=== PATIENT | female | born 1945 | race Caucasian/White ===

== ENCOUNTER 2019-04-02 12:11 | Outpatient (CLI) | payer MEDICARE, SELFPAY ==
--- NOTE | 2019-04-02 12:17 | US_ITS ---
WS: [id number] Abdomen ultrasound, 04/02/2019 Clinical Data: constipation and distention Comparison: None. Findings: The pancreas shows no cyst, pseudocyst or evidence of pancreatitis. The liver shows no cysts, masses or dilated intrahepatic ducts. The liver shows irregularity but no e nlargement measuring 13.27 cm. There is a large amount of ascites present. The gallbladder has stones and sludge. The wall measures 0.37 cmwith no pericholecystic fluid. The co mmon bile duct is 0.34 cm and no intraductal abnormalities are noted. The right kidney is 4.37 x 4.78 x 9.66 cm. No cysts, masses or hydronephrosis is seen. The left kidney is 4.25 x 4.48 x 7.83 cm. No cysts, masses or hydronephrosis is seen. The abdominal aorta is not dilated and the inferior vena cava has normal flow. No vascular abnormalit ies are seen. The spleen measures 6.88 x 16.37 cm and there are no intrasplenic masses are capsular abnormalities. US/US abdomen complete* [id number] Impression: 1. Irregular surface of the liver which may indicate cirrhosis. 2. Splenomegaly with ascites. 3. Cholelithiasis with sludge and stones. 4. Thickened gallbladder wall which can be seen with acute and/or chronic caden cystitis.
== END 2019-04-02 12:12 | disposition home or self-care (01) ==
LOC: RAD 12:15
PROVIDERS: Family Provider Nurse Practitioner Family; PCP Nurse Practitioner Family; Visit Provider Nurse Practitioner
DX: K80.20 Calculus of gallbladder without cholecystitis without obstruction (principal); R16.1 Splenomegaly, not elsewhere classified; K59.00 Constipation, unspecified; R18.8 Other ascites
CPT/HCPCS: 74018; 76700

== ENCOUNTER 2019-04-02 14:38 | Inpatient (IN) | payer MEDICARE, SELFPAY ==
[2019-04-02 14:44] VITALS: BP 141/76; PULSE 111; RESP 17; TEMP 36.7; O2SAT 99; BMI 25.2
--- NOTE | 2019-04-02 16:22 | ED_ITS ---
Documented by User: CHIN Reed 04/03/19 07:11 HPI - Abdominal Pain General: Chief Complaint: Abdominal Pain Stated Complaint: upper abd pain Time Seen by Provider: 04/02/19 16:13 Source: patient Mode of arrival: ambulatory Limitations: no limitations History of Present Illness: HPI narrative: Patient was encouraged to come over to be evaluated in the ER for concerns of gallstones and extra fluid on her abdomen. Patient reports increased discomfort for the last 2 weeks in her abdomen. Patient was seen at the [facility] and [place]. Patient appears chronically ill with some mild respiratory difficulty. Patient appears in mild pain. Associated Symptoms: Reports nausea Review of Systems General: Reports: 10 or more systems reviewed and unremarkable except in HPI and below Resp: Reports: shortness of breath GI: Reports: abdominal pain and nausea PFSH ED PFSH: Statuses (acute, chronic, etc) shown below reflect problem list status as previously entered and may not be historically accurate Medical History (Updated 04/03/19 @ 02:41 by Shoshana Ferguson MD) Acquired hypothyroidism (Chronic) Arthritis (Chronic) Chronic kidney disease, stage III (moderate) (Acute) DDD (degenerative disc disease), lumbosacral (Chronic) Essential hypertension (Chronic) Herpes genitalia (Acute) History of breast cancer (Acute) 1997, treated with right mastectomy, never had chemotherapy nor hormonal therapy Mixed hyperlipidemia (Chronic) Type 2 diabetes mellitus without complication, without long-term current use of insulin (Chronic) Vitamin D deficiency (Chronic) Surgical History (Updated 04/03/19 @ 02:38 by Shoshana Ferguson MD) History of right mastectomy (Acute) 1997 Family History (Updated 04/03/19 @ 02:34 by Shoshana Ferguson MD) Sister Cancer of breast cancer, several cousins also have breast cancer Father CAD (coronary artery disease) Brother CAD (coronary artery disease) Other Arthritis Social History (Updated 04/03/19 @ 02:35 by Shoshana Ferguson MD) Smoking and tobacco status: never smoked Alcohol intake: never Substance/Drug Use: never Number of children: 0 Physical Exam Const: COMMON NORMALS: no apparent distress and oriented x3 GENERAL APPEARANCE: cooperative HENMT: COMMON NORMALS: normocephalic, external ears normal, EAC's normal, TM's normal bilaterally and external nose normal HEAD & SCALP: normal to inspection and normocephalic FACE & SINUS: normal facial exam NOSE: external nose normal GENERAL EAR: hearing not grossly impaired EXTERNAL EAR: Yes external ears normal EXTERNAL AUDITORY CANAL: EAC's normal TYMPANIC MEMBRANE: TM's normal bilaterally MOUTH: oral and palatal mucosa normal THROAT: posterior oropharynx normal Eye: COMMON NORMALS: PERRL and EOMs intact bilaterally PUPIL: Yes PERRL Neck/C-Spine: COMMON NORMALS: full ROM and no lymphadenopathy Lymph: LYMPHATIC: no lymphedema noted Chest: COMMONS NORMALS: inspection of chest normal and palpation of chest normal Resp: COMMON NORMALS: clear to auscultation bilaterally EFFORT & INSPECT ION: Yes abnormal respiratory pattern (tachypnic) AUSCULTATION: clear to auscultation bilaterally and diminished lung sounds Cardio: COMMON NORMALS: regular rate and regular rhythm RATE: regular rate RHYTHM: regular rhythm GI: INSPECTION: Yes abdominal distension (mod) AUSCULTATION: Yes normoactive bowel sounds PALPATION: Yes tender Details: RUQ (mild) : COMMON NORMALS: Yes no CVA tenderness BLADDER/KIDNEY EXAM: Yes no CVA tenderness Back/Pelvis: COMMON NORMALS: no CVA tenderness and thoracic and lumbar spine normal to inspection Extremity: COMMON NORMALS: normal to inspection GENERAL: No edema Neuro: COMMON NORMALS: oriented x3, moves all extremities and no focal motor deficits Psych: COMMON NORMALS: mental status grossly normal and cooperative Skin: COMMON NORMALS: no rashes or lesions noted GENERAL SKIN EXAM: no rashes or lesions noted Course ED course: 1624, discussed with Dr. Lee, agreed to receive patient on my leave. Recommended US of gallbladder for further evaluation. ww 1650, talked with Dr. Lee regarding abnormal US, will assume care, awaiting labs and further evaluation, probable admit to surgical services for gallbladder removal. wjw Vital Signs: Vital signs: Vital Signs Temperature 98.4 F 04/03/19 04:00 Pulse Rate 84 04/03/19 04:00 Respiratory Rate 22 H 04/03/19 04:00 Blood Pressure 129/71 04/03/19 04:00 Pulse Oximetry 97 04/03/19 04:00 MDM - Abdominal Pain Lab Data: Labs: Lab Results 04/02/19 04/02/19 04/02/19 Range/Units 17:00 17:00 17:01 WBC 6.7 (4.0-10.0) 10^3/ uL RBC 3.25 L (4.1-5.3) 10^6/u L Hgb 8.2 L (11.5-15.3) g/dL Hct 28.1 L (37.0-47.0) % MCV 86.5 (81-99) fL MCH 25.2 L (28.0-34.0) pg MCHC 29.2 L (30.0-36.0) g/dL RDW 16.8 H (12.1-15.1) % Plt Count 151 (130-400) 10^3/c mm MPV 11.7 H (7.4-10.4) fL Neut % (Auto) 73.1 % Lymph % (Auto) 15.7 % [place] % (Auto) 7.7 % Eos % (Auto) 2.5 % Baso % (Auto) 0.7 % Neut # (Auto) 4.9 (1.8-7.7) 10^3/u L Lymph # (Auto) 1.1 (0.8-4.8) 10^3/u L [place] # (Auto) 0.5 (0.2-0.9) 10^3/u L Eos # (Auto) 0.2 (0.0-0.8) 10^3/u L Baso # (Auto) 0.1 (0.0-0.1) 10^3/u L Nucleated RBC % (a uto) 0 % Nucleated RBCs # 0.0 /100WBC Specimen Type Sample Site ABG pH (7.35-7.45) ABG pCO2 (35-45) mmHg ABG pO2 (80.0-100.0) mmH g ABG HCO3 (22-26) mmol/L ABG Base Excess (-2.0-2.0) mmol/ L Ronald Test Hematocrit (37-47) % Pot Fluxer ID Sodium 135 L (136-145) mmol/L Potassium 5.3 H (3.5-5.1) mmol/L Chloride 106 (98-107) mmol/L Carbon Dioxide 16 L (22-29) mmol/L Anion Gap 18.3 (5-19) BUN 44 H (8-23) mg/dL Creatinine 2.1 H (0.5-0.9) mg/dL Glucose 279 H (74-106) mg/dL Calcium 9.2 (8.8-10.2) mg/Dl Total Bilirubin 0.4 (0.15-1.2) mg/dL AST 47 H (0-32) U/L ALT 28 (0-33) U/L Alkaline Phosphata se 369 H (35-105) IU/L Troponin T Baselin e 37 H (0-10) ng/mL Troponin T 120 Min [place] (0-10) ng/mL Delta Troponin T (0-10) ABS# Total Protein 7.0 (6.6-8.7) g/dL Albumin 3.2 L (3.5-5.2) g/dL Globulin 3.8 (1.3-4.6) g/dL Lipase 77 H (13-60) U/L Urine Color (Yellow) Urine Appearance (CLEAR) Urine pH (5-7) Ur Specific Gravit y (1.005-1.030) Urine Protein (Negative) Urine Glucose (UA) (Normal) Urine Ketones (Negative) Urine Occult Blood (Negative) Urine Nitrate (Negative) Urine Bilirubin (NEGATIVE) Urine Urobilinogen (Negative) mg/dL Ur Leukocyte Nelda ase (Negative) Urine RBC (0-2) /hpf Urine WBC (0-5) /hpf Ur Squamous Epith Cells (0-5) Urine Bacteria (NONE) Hyaline Casts 04/02/19 04/02/19 04/02/19 Range/Units 17:34 19:19 20:20 WBC (4.0-10.0) 10^3/ uL RBC (4.1-5.3) 10^6/u L Hgb (11.5-15.3) g/dL Hct (37.0-47.0) % MCV (81-99) fL MCH (28.0-34.0) pg MCHC (30.0-36.0) g/dL RDW (12.1-15.1) % Plt Count (130-400) 10^3/c mm MPV (7.4-10.4) fL Neut % (Auto) % Lymph % (Auto) % [place] % (Auto) % Eos % (Auto) % Baso % (Auto) % Neut # (Auto) (1.8-7.7) 10^3/u L Lymph # (Auto) (0.8-4.8) 10^3/u L [place] # (Auto) (0.2-0.9) 10^3/u L Eos # (Auto) (0.0-0.8) 10^3/u L Baso # (Auto) (0.0-0.1) 10^3/u L Nucleated RBC % (a uto) % Nucleated RBCs # /100WBC Specimen Type Arterial Sample Site Radial, right ABG pH 7.40 (7.35-7.45) ABG pCO2 23.2 L (35-45) mmHg ABG pO2 82.9 (80.0-100.0) mmH g ABG HCO3 14.5 L (22-26) mmol/L ABG Base Excess -9.0 L (-2.0-2.0) mmol/ L Ronald Test Pos Hematocrit 25.3 L (37-47) % Pot Fluxer ID jmn Sodium (136-145) mmol/L Potassium (3.5-5.1) mmol/L Chloride (98-107) mmol/L Carbon Dioxide (22-29) mmol/L Anion Gap (5-19) BUN (8-23) mg/dL Creatinine (0.5-0.9) mg/dL Glucose (74-106) mg/dL Calcium (8.8-10.2) mg/Dl Total Bilirubin (0.15-1.2) mg/dL AST (0-32) U/L ALT (0-33) U/L Alkaline Phosphata se (35-105) IU/L Troponin T Baselin e (0-10) ng/mL Troponin T 120 Min [place] 37.65 H (0-10) ng/mL Delta Troponin T 0.65 (0-10) ABS# Total Protein (6.6-8.7) g/dL Albumin (3.5-5.2) g/dL Globulin (1.3-4.6) g/dL Lipase (13-60) U/L Urine Color Yellow (Yellow) Urine Appearance Cloudy (CLEAR) Urine pH 5 (5-7) Ur Specific Gravit y 1.015 (1.005-1.030) Urine Protein 1+ H (Negative) Urine Glucose (UA) Norm (Normal) Urine Ketones 1+ H (Negative) Urine Occult Blood Neg (Negative) Urine Nitrate Negative (Negative) Urine Bilirubin 1+ H (NEGATIVE) Urine Urobilinogen 1 H (Negative) mg/dL Ur Leukocyte [place] Trace H (Negative) Urine RBC 0-4 H (0-2) /hpf Urine WBC 15-25 H (0-5) /hpf Ur Squamous Epith Cells 25-40 H (0-5) Urine Bacteria 2+ H (NONE) Hyaline Casts 0-4 H Imaging Data ^: US: Radiologist's impression: Patient: Franci Sy MR#: [id number] : 1945 Acct:[id number] Age/Sex: 74 / F ADM Date: 04/02/19 Loc: RAD Attending Dr: Paty NEELY Ordering Physician: Paty Lao Date of Service: 04/02/19 Procedure(s): US abdomen complete* [id number] Accession Number(s): [id number] Report Number: [id number] WS: [id number] Abdomen ultrasound, 04/02/2019 Clinical Data: constipation and distention Comparison: None. Findings: The pancreas shows no cyst, pseudocyst or evidence of pancreatitis. The liver shows no cysts, masses or dilated intrahepatic ducts. The liver shows irregularity but no enlargement measuring 13.27 cm. There is a large amount of ascites present. The gallbladder has stones and sludge. The wall measures 0.37 cmwith no pericholecystic fluid. The common bile duct is 0.34 cm and no intraductal abnormalities are noted. The right kidney is 4.37 x 4.78 x 9.66 cm. No cysts, masses or hydronephrosis is seen. The left kidney is 4.25 x 4.48 x 7.83 cm. No cysts, masses or hydronephrosis is seen. The abdominal aorta is not dilated and the inferior vena cava has normal flow. No vascular abnormalities are seen. The spleen measures 6.88 x 16.37 cm and there are no intrasplenic masses are capsular abnormalities. US/US abdomen complete* [id number] Impression: 1. Irregular surface of the liver which may indicate cirrhosis. 2. Splenomegaly with ascites. 3. Cholelithiasis with sludge and stones. 4. Thickened gallbladder wall which can be seen with acute and/or chronic cholecystitis. Dictated By: Megna Ratliff MD Signed By: Megan Ratliff MD Signed Date/Time:04/02/19 1339 DD/ 1336 Discharge Plan Discharge Patient Disposition: Placed in Observation Admit Provider: Shoshana Ferguson Clinical Impression: Ascites Qualifiers: Ascites type: other type Qualified Code(s): R18.8 - Other ascites Condition: Stable Discharge Date/Time: 04/02/19 22:20 Sign Out Sign Out Data: Patient Sign Out occurred on 04/02/19 at 17:03. Patient's care was discussed, and care was transferred from Lane Jaime to Luna Lee. Sign Out Comment: Patient awaiting labs and further evaluation, probable admission for surgical services for cholecystitis. wjw Last updated by Lane Jaime FNP at 04/02/19 17:03 Coding Level of Care Code ED Outer Diameter Grinder for Chg Fwd Exam Problem Focused Documented by User: Luna Lee 04/02/19 22:01 HPI - Abdominal Pain General: Chief Complaint: Abdominal Pain Stated Complaint: upper abd pain Time Seen by Provider: 04/02/19 16:13 PFSH ED PFSH: Statuses (acute, chronic, etc) shown below reflect problem list status as previously entered and may not be historically accurate Medical History (Updated 04/03/19 @ 02:41 by Shoshana Ferguson MD) Acquired hypothyroidism (Chronic) Arthritis (Chronic) Chronic kidney disease, stage III (moderate) (Acute) DDD (degenerative disc disease), lumbosacral (Chronic) Essential hypertension (Chronic) Herpes genitalia (Acute) History of breast cancer (Acute) 1997, treated with right mastectomy, never had chemotherapy nor hormonal therapy Mixed hyperlipidemia (Chronic) Type 2 diabetes mellitus without complication, without long-term current use of insulin (Chronic) Vitamin D deficiency (Chronic) Surgical History (Updated 04/03/19 @ 02:38 by Shoshana Ferguson MD) History of right mastectomy (Acute) 1997 Family History (Updated 04/03/19 @ 02:34 by Shoshana Ferguson MD) Sister Cancer of breast cancer, several cousins also have breast cancer Father CAD (coronary artery disease) Brother CAD (coronary artery disease) Other Arthritis Social History (Updated 04/03/19 @ 02:35 by Shoshana Ferguson MD) Smoking and tobacco status: never smoked Alcohol intake: never Substance/Drug Use: never Number of children: 0 Course Vital Signs: Vital signs: Vital Signs Temperature 98.4 F 04/03/19 04:00 Pulse Rate 84 04/03/19 04:00 Respiratory Rate 22 H 04/03/19 04:00 Blood Pressure 129/71 04/03/19 04:00 Pulse Oximetry 97 04/03/19 04:00 MDM - Abdominal Pain MDM Narrative: Medical decision making narrative: The patient was seen and evaluated by Dr. Webb. She agrees admit the patient for work-up of her ascites. The patient gets conversational dyspnea L as she is sitting upright. I see no sign of spontaneous bacterial peritonitis. I do believe we need to perform a diagnostic and therapeutic paracentesis but would be best performed under optimal sterile conditions under radiology guidance with ultrasound. Dr. Ferguson is in agreement and will admit the patient for further care. Lab Data: Labs: Lab Results 04/02/19 04/02/19 04/02/19 Range/Units 17:00 17:00 17:01 WBC 6.7 (4.0-10.0) 10^3/ uL RBC 3.25 L (4.1-5.3) 10^6/u L Hgb 8.2 L (11.5-15.3) g/dL Hct 28.1 L (37.0-47.0) % MCV 86.5 (81-99) fL MCH 25.2 L (28.0-34.0) pg MCHC 29.2 L (30.0-36.0) g/dL RDW 16.8 H (12.1-15.1) % Plt Count 151 (130-400) 10^3/c mm MPV 11.7 H (7.4-10.4) fL Neut % (Auto) 73.1 % Lymph % (Auto) 15.7 % [place] % (Auto) 7.7 % Eos % (Auto) 2.5 % Baso % (Auto) 0.7 % Neut # (Auto) 4.9 (1.8-7.7) 10^3/u L Lymph # (Auto) 1.1 (0.8-4.8) 10^3/u L [place] # (Auto) 0.5 (0.2-0.9) 10^3/u L Eos # (Auto) 0.2 (0.0-0.8) 10^3/u L Baso # (Auto) 0.1 (0.0-0.1) 10^3/u L Nucleated RBC % (a uto) 0 % Nucleated RBCs # 0.0 /100WBC Specimen Type Sample Site ABG pH (7.35-7.45) ABG pCO2 (35-45) mmHg ABG pO2 (80.0-100.0) mmH g ABG HCO3 (22-26) mmol/L ABG Base Excess (-2.0-2.0) mmol/ L Ronald Test Hematocrit (37-47) % Pot Fluxer ID Sodium 135 L (136-145) mmol/L Potassium 5.3 H (3.5-5.1) mmol/L Chloride 106 (98-107) mmol/L Carbon Dioxide 16 L (22-29) mmol/L Anion Gap 18.3 (5-19) BUN 44 H (8-23) mg/dL Creatinine 2.1 H (0.5-0.9) mg/dL Glucose 279 H (74-106) mg/dL Calcium 9.2 (8.8-10.2) mg/Dl Total Bilirubin 0.4 (0.15-1.2) mg/dL AST 47 H (0-32) U/L ALT 28 (0-33) U/L Alkaline Phosphata se 369 H (35-105) IU/L Troponin T Baselin e 37 H (0-10) ng/mL Troponin T 120 Min [place] (0-10) ng/mL Delta Troponin T (0-10) ABS# Total Protein 7.0 (6.6-8.7) g/dL Albumin 3.2 L (3.5-5.2) g/dL Globulin 3.8 (1.3-4.6) g/dL Lipase 77 H (13-60) U/L Urine Color (Yellow) Urine Appearance (CLEAR) Urine pH (5-7) Ur Specific Gravit y (1.005-1.030) Urine Protein (Negative) Urine Glucose (UA) (Normal) Urine Ketones (Negative) Urine Occult Blood (Negative) Urine Nitrate (Negative) Urine Bilirubin (NEGATIVE) Urine Urobilinogen (Negative) mg/dL Ur Leukocyte Nelda ase (Negative) Urine RBC (0-2) /hpf Urine WBC (0-5) /hpf Ur Squamous Epith Cells (0-5) Urine Bacteria (NONE) Hyaline Casts 04/02/19 04/02/19 04/02/19 Range/Units 17:34 19:19 20:20 WBC (4.0-10.0) 10^3/ uL RBC (4.1-5.3) 10^6/u L Hgb (11.5-15.3) g/dL Hct (37.0-47.0) % MCV (81-99) fL MCH (28.0-34.0) pg MCHC (30.0-36.0) g/dL RDW (12.1-15.1) % Plt Count (130-400) 10^3/c mm MPV (7.4-10.4) fL Neut % (Auto) % Lymph % (Auto) % [place] % (Auto) % Eos % (Auto) % Baso % (Auto) % Neut # (Auto) (1.8-7.7) 10^3/u L Lymph # (Auto) (0.8-4.8) 10^3/u L [place] # (Auto) (0.2-0.9) 10^3/u L Eos # (Auto) (0.0-0.8) 10^3/u L Baso # (Auto) (0.0-0.1) 10^3/u L Nucleated RBC % (a uto) % Nucleated RBCs # /100WBC Specimen Type Arterial Sample Site Radial, right ABG pH 7.40 (7.35-7.45) ABG pCO2 23.2 L (35-45) mmHg ABG pO2 82.9 (80.0-100.0) mmH g ABG HCO3 14.5 L (22-26) mmol/L ABG Base Excess -9.0 L (-2.0-2.0) mmol/ L Ronald Test Pos Hematocrit 25.3 L (37-47) % Pot Fluxer ID jmn Sodium (136-145) mmol/L Potassium (3.5-5.1) mmol/L Chloride (98-107) mmol/L Carbon Dioxide (22-29) mmol/L Anion Gap (5-19) BUN (8-23) mg/dL Creatinine (0.5-0.9) mg/dL Glucose (74-106) mg/dL Calcium (8.8-10.2) mg/Dl Total Bilirubin (0.15-1.2) mg/dL AST (0-32) U/L ALT (0-33) U/L Alkaline Phosphata se (35-105) IU/L Troponin T Baselin e (0-10) ng/mL Troponin T 120 Min [place] 37.65 H (0-10) ng/mL Delta Troponin T 0.65 (0-10) ABS# Total Protein (6.6-8.7) g/dL Albumin (3.5-5.2) g/dL Globulin (1.3-4.6) g/dL Lipase (13-60) U/L Urine Color Yellow (Yellow) Urine Appearance Cloudy (CLEAR) Urine pH 5 (5-7) Ur Specific Gravit y 1.015 (1.005-1.030) Urine Protein 1+ H (Negative) Urine Glucose (UA) Norm (Normal) Urine Ketones 1+ H (Negative) Urine Occult Blood Neg (Negative) Urine Nitrate Negative (Negative) Urine Bilirubin 1+ H (NEGATIVE) Urine Urobilinogen 1 H (Negative) mg/dL Ur Leukocyte [place] Trace H (Negative) Urine RBC 0-4 H (0-2) /hpf Urine WBC 15-25 H (0-5) /hpf Ur Squamous Epith Cells 25-40 H (0-5) Urine Bacteria 2+ H (NONE) Hyaline Casts 0-4 H EKG Data ^: EKG 1: Attestation: I personally reviewed and interpreted this EKG as follows: (EKG performed and read at 1731 -normal sinus rhythm at 97 beats a minute, no acute ST-T wave changes, normal QTC.) Discharge Plan Discharge Patient Disposition: Placed in Observation Admit Provider: Shoshana Ferguson Clinical Impression: Ascites Qualifiers: Ascites type: other type Qualified Code(s): R18.8 - Other ascites Condition: Stable Discharge Date/Time: 04/02/19 22:20 Sign Out Sign Out Data: Patient Sign Out occurred on 04/02/19 at 17:03. Patient's care was discussed, and care was transferred from Lane Jaime to Luna Lee. Sign Out Comment: Patient awaiting labs and further evaluation, probable admission for surgical services for cholecystitis. wjw Last updated by Laen Jaime FNP at 04/02/19 17:03 Coding Level of Care Code ED Outer Diameter Grinder for Chg Fwd Exam Problem Focused
--- NOTE | 2019-04-02 16:27 | ECG_ITS ---
Measurements Intervals [place] Rate: 97 P: 5 OK: 160 QRS: 43 QRSD: 93 T: 36 QT: 345 QTc: 439 SINUS RHYTHM LOW QRS VOLTAGE IN EXTREMITY LEADS [QRS DEFLECTION < 0.5 mV IN LIMB LEADS] No previous ECG available for comparison Electronically Signed On 04-03-2019 16:43:17 TRAUMA REGISTRAR by Ajay Lindsay M.D. [id number] f
--- NOTE | 2019-04-02 16:28 | XR_ITS ---
WS: [id number] CHEST XRAY TECHNIQUE: Portable chest. CLINICAL INFORMATION: short of breath COMPARISON: None. FINDINGS: Heart: Cardiomegaly. Lungs: Shallow inspiration. Chronic emphysematous changes. Subsegmental atelectasis in the lung bases . Surgical clips right axilla. No focal pneumonia. Bones: Normal visualized bony structures. XR/XR chest 1V portable [id number] IMPRESSION: 1. Shallow inspiration with subsegmental atelectasis in the lung bases. 2. No focal pneumonia.
--- NOTE | 2019-04-02 16:58 | CTR_ITS ---
PROCEDURE INFORMATION: Exam: CT Abdomen And Pelvis Without Contrast Exam date and time: 04/02/2019 5:55 PM Age: 74 years old Clinical indication: Bloating; Abdominal pain TECHNIQUE: Imaging protocol: Computed tomography of the abdomen and pelvis without contrast. Total DLP: 794.41 mGy-cm Radiation optimization: All CT scans at this facility use at least one of these dose optimization techniques: automated exposure control; mA and/or kV adjustment per patient size (includes targeted exams where dose is matched to clinical indication); or iterative reconstruction. COMPARISON: US abdomen complete* [id number] 04/02/2019 12:58 PM FINDINGS: Lungs: Nonspecific bibasilar consolidation is present, consistent with atelectasis, edema, or pneumonia. Mediastinum: A moderate hiatal hernia is present. Liver: The liver has a nodular contour and there is relative hypertrophy of the caudate lobe, consistent with cirrhosis. Gallbladder and bile ducts: Multiple calcified gallstones are present. There is no common bile duct dilation. Pancreas: Normal. No ductal dilation. Spleen: There is moderate nonspecific splenomegaly. Adrenals: Normal. No mass. Kidneys and ureters: Normal. No hydronephrosis. Stomach and bowel: Unremarkable. No obstruction. No mucosal thickening. Appendix: No evidence of appendicitis. Intraperitoneal space: There is a large amount of ascites. Vasculature: Unremarkable.No abdominal aortic aneurysm. Lymph nodes: Unremarkable.No enlarged lymph nodes. Bladder: Unremarkable as visualized. Reproductive: Unremarkable as visualized. Bones/joints: Osteopenia and diffuse degenerative changes are noted throughout the spine. Soft tissues: Unremarkable. CT/CT abdomen pelvis wo con [id number] IMPRESSION: 1. Nonspecific bibasilar consolidation is present, consistent with atelectasis, edema, or pneumonia. 2. There is a large amount of ascites. 3. Liver cirrhosis with splenomegaly. 4. No bowel thickening or inflammatory changes. Incidental cholelithiasis. Radiation Dose CTDIVOL = (mGy): DLP = 794.41 (mGy-cm)
[2019-04-02 17:10] LABS: Basophils # 0.1 10^3/uL (0.0-0.1); Basophils % 0.7 %; Eosinophils # 0.2 10^3/uL (0.0-0.8); Eosinophils % 2.5 %; Hematocrit 28.1 % (37.0-47.0); Hemoglobin 8.2 g/dL (11.5-15.3); Lymphocytes # 1.1 10^3/uL (0.8-4.8); Lymphocytes % 15.7 %; Mean Corpuscular HGB Conc 29.2 g/dL (30.0-36.0); Mean Corpuscular Hemoglobin 25.2 pg (28.0-34.0); Mean Corpuscular Volume 86.5 fL (81-99); Mean Platelet Volume 11.7 fL (7.4-10.4); Monocytes # 0.5 10^3/uL (0.2-0.9); Monocytes % 7.7 %; Neutrophils # 4.9 10^3/uL (1.8-7.7); Neutrophils % 73.1 %; Nucleated Red Blood Cells % 0 %; Platelet Count 151 10^3/cmm (130-400); Red Blood Count 3.25 10^6/uL (4.1-5.3); Red Cell Distribution Width 16.8 % (12.1-15.1); White Blood Count 6.7 10^3/uL (4.0-10.0)
[2019-04-02 17:30] LABS: Troponin(5th) Baseline 37 ng/mL (0-10)
[2019-04-02 17:42] LABS: Alanine Aminotransferase 28 U/L (0-33); Albumin Level 3.2 g/dL (3.5-5.2); Alkaline Phosphatase 369 IU/L (35-105); Anion Gap 18.3 (5-19); Aspartate Amino Transferase 47 U/L (0-32); Blood Urea Nitrogen 44 mg/dL (8-23); Calcium 9.2 mg/Dl (8.8-10.2); Carbon Dioxide 16 mmol/L (22-29); Chloride 106 mmol/L (98-107); Globulin 3.8 g/dL (1.3-4.6); Glucose 279 mg/dL (74-106); Lipase 77 U/L (13-60); Potassium 5.3 mmol/L (3.5-5.1); Sodium 135 mmol/L (136-145); Total Bilirubin 0.4 mg/dL (0.15-1.2)
[2019-04-02 17:46] LABS: ABG PCO2 23.2 mmHg (35-45); Arterial Blood Gas Hematocrit 25.3 % (37-47); Blood Gas Allen Test Pos; Blood Gas Sample Site Radial, right; Blood Gas Sample Type Arterial; HCO3 ABG 14.5 mmol/L (22-26); PO2 ABG 82.9 mmHg (80.0-100.0)
--- NOTE | 2019-04-02 18:27 | ECG_ITS ---
Measurements Intervals [place] Rate: 92 P: 5 NM: 166 QRS: 34 QRSD: 104 T: 48 QT: 352 QTc: 435 SINUS RHYTHM LOW QRS VOLTAGE IN EXTREMITY LEADS [QRS DEFLECTION < 0.5 mV IN LIMB LEADS] No previous ECG available for comparison Electronically Signed On 04-03-2019 16:50:03 SUPERVISOR DRY CELL ASSEMBLY by Ajay Lindsay M.D. [id number]
[2019-04-02 19:53] LABS: Troponin 5 2HR 37.65 ng/mL (0-10); Troponin 5 2HR Delta 0.65 ABS# (0-10)
[2019-04-02 20:27] VITALS: RESP 18; O2SAT 97
[2019-04-02] MEDS: morphine 4 mg/mL SDV 1 mL 2 MG IVP ×2 (20:27→21:45)
[2019-04-02 21:09] VITALS: BP 157/76; PULSE 83; RESP 22; TEMP 36.7; O2SAT 98
[2019-04-02 21:09] LABS: Urine Color Yellow (Yellow)
[2019-04-02 21:10] LABS: Bilirubin Urine 1+ (NEGATIVE); Blood Urine Neg (Negative); Glucose Urine UA Norm (Normal); Ketones Urine 1+ (Negative); Leukocyte Esterase Urine Trace (Negative); Nitrate Urine Negative (Negative); Protein Urine 1+ (Negative); Specific Gravity, Urine 1.015 (1.005-1.030); Urine Appearance Cloudy (CLEAR); Urobilinogen Urine 1 mg/dL (Negative); pH Urine 5 (5-7)
[2019-04-02 21:11] LABS: RBC Urine 0-4 /hpf (0-2)
[2019-04-02 21:12] LABS: Add Urine Culture? No; Bacteria Urine 2+; Hyaline Casts Urine 0-4; Squamous Epithelial Cell Urine 25-40 (0-5); WBC Urine 15-25 /hpf (0-5)
[2019-04-02 21:45] VITALS: RESP 18; O2SAT 96
[2019-04-02] MEDS: ondansetron 2 mg/ML SDV 2 mL 4 MG IVP (21:45)
[2019-04-02 22:16] VITALS: BP 140/53; PULSE 76; RESP 18; O2SAT 93
--- NOTE | 2019-04-02 22:27 | ECG_ITS ---
Measurements Intervals [place] Rate: 86 P: -6 VA: 151 QRS: 39 QRSD: 97 T: 54 QT: 370 QTc: 443 SINUS RHYTHM LOW QRS VOLTAGE IN EXTREMITY LEADS [QRS DEFLECTION < 0.5 mV IN LIMB LEADS] No previous ECG available for comparison Electronically Signed On 04-03-2019 16:51:09 COURTESY VAN DRIVER by Ajay Lindsay M.D. [id number]
[2019-04-03] VITALS (7 sets, daily range): BP systolic 129–157; BP diastolic 70–77; PULSE 83–88; RESP 18–22; TEMP 36.6–36.9; O2SAT 97–98; BMI 25.2
--- NOTE | 2019-04-03 00:59 | P.HP_ITS ---
Providers/Chief Complaint Admitting Physician: Shoshana Ferguson MD Primary Care Provider: Jesus Sullivan Chief Complaint: upper abd pain History of Present Illness Franci Sy is a 74 year old female who presented to the emergency room for further evaluation of new finding of ascites. She had been seen at the clinic in [place] with a complaint of constipation. She was subsequently sent for an abdominal ultrasound that showed an irregular appearance to the liver suggesting cirrhosis, splenomegaly and a significant amount of ascites. Also noted was some cholelithiasis with sludge and stones. Gallbladder wall was thickened. She was encouraged to come to the ER. In the emergency room, she had some laboratory studies showing elevation in alkaline phosphatase, AST, normal white count and either acute kidney injury or progressive chronic kidney disease. CT of the abdomen and pelvis was done and confirmed findings suggestive of liver cirrhosis with splenomegaly. Incidental cholelithiasis was mentioned as well as nonspecific bibasilar consolidation consistent with either atelectasis, edema or pneumonia. Patient herself has no personal history of liver disease. She d enies alcohol or drug use. She denies use of any herbal type medications. No family history of liver or kidney disease. She has her own medical diagnoses as noted below which include breast cancer, diabetes, hypothyroidism. She reports that she has had gradually increasing abdominal girth over the last month. She can no longer wear her pants. She has had swelling in her legs. She denies any yellow skin or dark urine. No changes in urine output. No hematuria. No changes in bowel color or character beyond the constipation recently. She does not have any difficulty with urination but has intermittent incontinence. Last bowel movement was day of admission. She denies abdominal pain, difficulty swallowing, significant heartburn or indigestion. She has gotten progressively short of breath over the last month or so and has had a nonproductive cough. She reports increased frequency of charley horses and has been taking some [id number] potassium supplementation. Denies any difficulty walking or tremors. No recent new medications. Denies history of chronic acetaminophen or NSAID use. ED doctor noted that she was having some difficulty breathing upon arrival, sitting in a tripod position but that if she laid back she did better. With abnormalities identified she is being admitted for initiation of work-up for what looks to be a new diagnosis of liver cirrhosis. She is only had 1 surgery back in 1997 a right mastectomy. Denies ever having had a blood transfusion. Denies any history of IV drug use. Has not been tested for hepatitis that she is aware of. Review of Systems Const: Reports: change in weight (Weight gain) and fatigue; Denies: fever, chills or night sweats Eyes: Denies: change in vision or yellow eyes ENMT: Reports: dry mouth; Denies: throat pain or painful swallowing Card: Reports: edema and shortness of breath on exertion; Denies: chest pain, palpitations or irregular heart rhythm Resp: Reports: shortness of breath and non-productive cough GI: Reports: constipation and bloating; Denies: abdominal pain, nausea, vomiting, vomiting blood, coffee grounds in v omit, diarrhea, blood in stool, black tarry stool, mucus in stool, white/light colored stool or fatty stool : Reports: urinary incontinence (Occasional); Denies: flank pain, difficulty urinating or blood in urine Musc: Reports: extremity swelling (Both legs) and muscle weakness (General); Denies: redness Skin/Breast: Reports: other (Has chronic skin changes around umbilicus and un john left breast); Denies: itching or new lesion Neuro: Denies: headache, lack of coordination, difficulty walking, frequent falls, vertigo, confusion, difficulty communicating thoughts, seizure-like activity or involuntary movements Psych: Reports: anxiety and depression; Denies: irritability or memory loss Luis A/Lymph: Denies: easy bruising, easy bleeding or petechiae Medications/Allergies Home Medications Medication Instructions Recorded Confirmed Last Taken Type glipizide 10 mg PO DAILY 04/02/19 04/02/19 04/02/19 History levothyroxine 25 mcg PO DAILY 04/02/19 04/02/19 04/02/19 History lisinopril 10 mg PO DAILY 04/02/19 04/02/19 04/02/19 History simvastatin 10 mg PO DAILY 04/02/19 04/02/19 04/02/19 History Allergies Allergy/AdvReac Type Severity Reaction Status Date / Time No Known Allergies Allergy Verified 04/02/19 11:14 PFSH Acute PFSH: Statuses (acute, chronic, etc) shown below reflect problem list status as previously entered and may not be historically accurate Medical History (Updated 04/03/19 @ 02:41 by Shoshana Ferguson MD) Acquired hypothyroidism (Chronic) Arthritis (Chronic) Chronic kidney disease, stage III (moderate) (Acute) DDD (degenerative disc disease), lumbosacral (Chronic) Essential hypertension (Chronic) Herpes genitalia (Acute) History of breast cancer (Acute) 1997, treated with right mastectomy, never had chemotherapy nor hormonal therapy Mixed hyperlipidemia (Chronic) Type 2 diabetes mellitus without complication, without long-term current use of insulin (Chronic) Vitamin D deficiency (Chronic) Surgical History (Updated 04/03/19 @ 02:38 by Shoshana Ferguson MD) History of right mastectomy (Acute) 1997 Family History (Updated 04/03/19 @ 02:34 by Shoshana Ferguson MD) Sister Cancer of breast cancer, several cousins also have breast cancer Father CAD (coronary artery disease) Brother CAD (coronary artery disease) Other Arthritis Social History (Updated 04/03/19 @ 02:35 by Shoshana Freguson MD) Smoking and tobacco status: never smoked Alcohol intake: never Substance/Drug Use: never Number of children: 0 Female Reporductive History: : 1 Para: 0 Spontaneous abortions: Yes Vitals/I&O/Wt Last Vital Signs Temp 98.1 F 04/02/19 21:09 Pulse 76 04/02/19 22:16 Resp 18 04/02/19 22:16 BP 140/53 04/02/19 22:16 Pulse Ox 93 04/02/19 22:16 Weight last 48 hrs Weight 63.503 kg Physical Exam Const: COMMON NORMALS: oriented x3 and alert NUTRITIONAL APPEARANCE: thin (though protuberant abdomen) HENMT: COMMON NORMALS: normocephalic, head/scalp atraumatic and moist oral mucous membranes MOUTH: no fetor hepaticus TEETH & GINGIVA: Yes dentures THROAT: posterior oropharynx normal Eye: COMMON NORMALS: PERRL, EOMs intact bilaterally, no scleral icterus and normal visual azul by confrontation Neck/C-Spine: COMMON NORMALS: supple Resp: COMMON NORMALS: no use of accessory muscles and clear to auscultation bilaterally AUSCULTATION: diminished lung sounds bilateral in the lower lung azul Cardio: COMMON NORMALS: regular rate, regular rhythm, no murmurs and no rub JUGULAR VENOUS DISTENTION: no JVD GI: COMMON NORMALS: soft to palpation and non-tender INSPECTION: No abdominal wall edema, Yes abdominal distension and No caput medusae present AUSCULTATION: Yes normoactive bowel sounds PALPATION: No guarding, Yes ascites present and No rebound tenderness present PERCUSSION: dullness to percussion : COMMON NORMALS: Yes no CVA tenderness and Yes external appearance normal Extremity: GENERAL: Yes normal exam except as noted and Yes edema (3+) Neuro: COMMON NORMALS: oriented x3 SPEECH: speech normal MOTOR EXAM: no tremor noted, no asterixis, no fasciculations and other (hand ror engineer normal) Skin: COMMON NORMALS: no wounds, no jaundice and no petechiae NARRATIVE SKIN EXAM: Patient with a large circular macular lightly scaly dry erythematous area around her umbilicus. Similar appearance under left breast although this 1 has some areas with slight moist texture. Per the patient and these are many many year duration and have not changed recently. No other similar lesions on the body. Has some slightly prominent upper abdominal vascularity visible thr ough the skin but no petechiae or hemangiomas are noted Data Other Data: Attestation for Other Data: I personally reviewed and interpreted the following: Other data: Laboratory Results - last 24 hr 04/02/19 04/02/19 04/02/19 17:00 17:00 17:01 WBC 6.7 RBC 3.25 L Hgb 8.2 L Hct 28.1 L MCV 86.5 MCH 25.2 L MCHC 29.2 L RDW 16.8 H Plt Count 151 MPV 11.7 H Neut % (Auto) 73.1 Lymph % (Auto) 15.7 Ocean % (Auto) 7.7 Eos % (Auto) 2.5 Baso % (Auto) 0.7 Neut # (Auto) 4.9 Lymph # (Auto) 1.1 Ocean # (Auto) 0.5 Eos # (Auto) 0.2 Baso # (Auto) 0.1 Nucleated RBC % (a uto) 0 Nucleated RBCs # 0.0 Specimen Type Sample Site ABG pH ABG pCO2 ABG pO2 ABG HCO3 ABG Base Excess Ronald Test Hematocrit Watch Hairspring Assembler ID Sodium 135 L Potassium 5.3 H Chloride 106 Carbon Dioxide 16 L Anion Gap 18.3 BUN 44 H Creatinine 2.1 H Glucose 279 H Calcium 9.2 Total Bilirubin 0.4 AST 47 H ALT 28 Alkaline Phosphata se 369 H Troponin I 6 Hour Troponin I Hi Sens Del Troponin T Baselin e 37 H Troponin T 120 Min [place] Troponin T Total Protein 7.0 Albumin 3.2 L Globulin 3.8 Lipase 77 H Urine Color Urine Appearance Urine pH Ur Specific Gravit y Urine Protein Urine Glucose (UA) Urine Ketones Urine Occult Blood Urine Nitrate Urine Bilirubin Urine Urobilinogen Ur Leukocyte Nelda ase Urine RBC Urine WBC Ur Squamous Epith Cells Urine Bacteria Hyaline Casts 04/02/19 04/02/19 04/02/19 17:34 19:19 20:20 WBC RBC Hgb Hct MCV MCH MCHC RDW Plt Count MPV Neut % (Auto) Lymph % (Auto) Ocean % (Auto) Eos % (Auto) Baso % (Auto) Neut # (Auto) Lymph # (Auto) Ocean # (Auto) Eos # (Auto) Baso # (Auto) Nucleated RBC % (a uto) Nucleated RBCs # Specimen Type Arterial Sample Site Radial, right ABG pH 7.40 ABG pCO2 23.2 L ABG pO2 82.9 ABG HCO3 14.5 L ABG Base Excess -9.0 L Ronald Test Pos Hematocrit 25.3 L Watch Hairspring Assembler ID jmn Sodium Potassium Chloride Carbon Dioxide Anion Gap BUN Creatinine Glucose Calcium Total Bilirubin AST ALT Alkaline Phosphata se Troponin I 6 Hour Troponin I Hi Sens Del Troponin T Baselin e Troponin T 120 Min [place] 37.65 H Delta Troponin T 0.65 Total Protein Albumin Globulin Lipase Urine Color Yellow Urine Appearance Cloudy Urine pH 5 Ur Specific Gravit y 1.015 Urine Protein 1+ H Urine Glucose (UA) Norm Urine Ketones 1+ H Urine Occult Blood Neg Urine Nitrate Negative Urine Bilirubin 1+ H Urine Urobilinogen 1 H Ur Leukocyte Nelda ase Trace H Urine RBC 0-4 H Urine WBC 15-25 H Ur Squamous Epith Cells 25-40 H Urine Bacteria 2+ H Hyaline Casts 0-4 H 04/02/19 23:08 WBC RBC Hgb Hct MCV MCH MCHC RDW Plt Count MPV Neut % (Auto) Lymph % (Auto) Ocean % (Auto) Eos % (Auto) Baso % (Auto) Neut # (Auto) Lymph # (Auto) Ocean # (Auto) Eos # (Auto) Baso # (Auto) Nucleated RBC % (a uto) Nucleated RBCs # Specimen Type Sample Site ABG pH ABG pCO2 ABG pO2 ABG HCO3 ABG Base Excess Ronald Test Hematocrit Watch Hairspring Assembler ID Sodium Potassium Chloride Carbon Dioxide Anion Gap BUN Creatinine Glucose Calcium Total Bilirubin AST ALT Alkaline Phosphata se Troponin I 6 Hour 36.70 H Troponin I Hi Sens Del -0.30 L Troponin T Baselin e Troponin T 120 Min [place] Troponin T Total Protein Albumin Globulin Lipase Urine Color Urine Appearance Urine pH Ur Specific Gravit y Urine Protein Urine Glucose (UA) Urine Ketones Urine Occult Blood Urine Nitrate Urine Bilirubin Urine Urobilinogen Ur Leukocyte Nelda ase Urine RBC Urine WBC Ur Squamous Epith Cells Urine Bacteria Hyaline Casts 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 In July 2018, TSH was 2.95, vitamin D 33, hemoglobin A1c 6.9, iron 50 with TIBC of 299 and percent saturation low at 16.3. Ferritin at the time was 40. Total bilirubin was 0.3, AST 40, ALT 27, alkaline phosphatase 194. Albumin was 3.7. Also at that time BUN and creatinine were 23/1.6. H&H was 01/21 with a white count of 4001 138,000 platelets. She had a serum protein electrophoresis that was normal in 2017. At the same time she had light chain analysis that was remarkable for elevated kappa and lambda light chains as well as a elevated free kappa to lambda light chain ratio at 2.95. Urine protein electrophoresis at that time was remarkable for a mild crowell proteinuria but no monoclonal protein was detected in the urine. 24-hour urine collection in 2015 for protein was 632 mg in 24 hours. HSV serology was done in 2011. She has had a normal IgG level and a negative rheumatoid factor in the past. Stool for occult blood has been negative on multiple occasions. A&P Assessment and plan (1) Liver cirrhosis: Currently patient has evidence of a nodular appearing liver, splenomegaly, ascites, some elevation in the AST and alkaline phosphatase, hypoalbuminemia. My first thought would be that she may have undiagnosed hepatitis C or not be forthcoming about a history of alcohol use or some medication use.. Reviewing her records she has had crowell proteinuria previously with some light chains. I suspect this is been progressing over time and just not identified. She does have diabetes and hypothyroidism. Values about a year ago TSH and hemoglobin A1c were not very high. She has thickened gallbladder wall and some gallstones with sludging noted. Liver enzyme abnormalities could go along with cholestasis but I just do not have a strong sense that that is the primary problem here at the moment. Needs further evaluation to discern a bit more about what is going on. Status: Acute Qualifiers: Hepatic cirrhosis type: unspecified hepatic cirrhosis Ascites presence: with ascites Qualified Code(s): K74.60 - Unspecified cirrhosis of liver; R18.8 - Other ascites Code(s): K74.60 - Unspecified cirrhosis of liver (2) Chronic kidney disease, stage III (moderate): Review of old old records shows that she has had some elevated creatinine usually around 1.6 or 1.7 for several years. Currently with creatinine of 2.3. Unclear to me if this represents acute kidney injury or progression of chronic kidney disease at this point in time. She has some hyperkalemia which is mild but does report taking oral potassium supplementations. She had around 600 mg of urine a protein in 24 hours a few years ago. This may be related to diabetes but does added another dimension to her overall picture that we need to keep in mind. Status: Acute Code(s): N18.3 - Chronic kidney disease, stage 3 (moderate) (3) Normocytic anemia: I suspect that this is anemia of chronic kidney disease or other chronic inflammatory process. Status: Acute Code(s): D64.9 - Anemia, unspecified (4) Type 2 diabetes mellitus without complication, without long-term current use of insulin: Suspect patient may have diabetic nephropathy but until we get a bit more information about her liver disease will not change diagnosis from primary clinic. She has been managed with glipizide and metformin, both of which I am holding due to renal dysfunction and liver abnormalities. Status: Chronic Code(s): E11.9 - Type 2 diabetes mellitus without complications (5) Acquired hypothyroidism: Chronically on thyroid replacement Status: Chronic Code(s): E03.9 - Hypothyroidism, unspecified (6) Essential hypertension: Holding JANAY inhibitor secondary to hyperkalemia, will monitor blood pressures Status: Chronic Code(s): I10 - Essential (primary) hypertension (7) Mixed hyperlipidemia: Currently holding statin until we get a better idea what is going on with her liver Status: Chronic Code(s): E78.2 - Mixed hyperlipidemia Additional A&P Information Additional A&P Information: Other diagnoses: Gallstones with gallbladder sludge which I think are incidental at this point or related to chronic cholecystitis Respiratory acidosis with metabolic compensation Elevated lipase Suspected contaminated urine specimen with squamous epithelial cells noted Atelectasis plus or minus edema lung bases on chest x-ray/CT Chronic erythematous scaling macular skin changes around umbilicus and under left breast Plan: Inpatient admission Ultrasound-guided paracentesis, diagnostic with fluid to be sent for analysis, including cytology Check coagulation studies, ammonia level, GGT, LDH, hepatitis panel, iron, B12, folate Check TSH, A1c, lipid panel Consider further testing pending results of above Hold any potassium 1 dose of Lasix (giving p.o. as patient has pulled out multiple IVs) and monitor output Recheck potassium in the morning SCDs for DVT prophylaxis currently, no pharmacological DVT prophylaxis at moment secondary to anticipated paracentesis Corrective dose insulin, metformin and glipizide held Statin held due to liver issues which appear to be new Continue levothyroxine Lisinopril held secondary to hyperkalemia, monitor blood pressures for addit ional therapy Will need close outpatient follow-up with PCP and possible consideration for referral to GI depending on clinical course Monitor for symptoms suggestive of need to address gallbladder findings sooner Avoid Tylenol and NSAIDs for the time being, discussed with patient There was no mention of any varices on noncontrasted CT the patient certainly at risk for them PPI secondary to this Supportive care otherwise Full code Plans discussed with patient, including getting some more blood work in the morning, giving her some medication tonight and trying to drain some fluid in the morning. Further I explained to her that for the time being was holding off on any further work-up or treatment regarding gallbladder findings. She was given an opportunity to ask questions Attestations Medical Necessity Statement*: Anticipated stay greater than 2 midnights in a patient with new onset ascites who very seldom presents for medical care. In addition to this she has what is either acute renal failure progressive chronic kidney disease. I am leaning towards progressive chronic kidney disease but do not have enough information at the moment to discern otherwise. In talking with her I have concerns about her ability to follow-up for initial evaluation of comorbid and potentially significant issues. Coding Level of Care Code Acute [employer]ing Tool Setter for Chg Fwd Diagnoses Liver cirrhosis K74.60; R18.8 Hepatic cirrhosis type: unspecified hepatic cirrhosis Ascites presence: with ascites Chronic kidney disease, stage III (moderate) N18.3 Normocytic anemia D64.9 Type 2 diabetes mellitus without complication, without long-term current use of insulin E11.9 Acquired hypothyroidism E03.9 Essential hypertension I10 Mixed hyperlipidemia E78.2
[2019-04-03] MEDS: FUROsemide 40 mg Tablet PO (03:18)
--- NOTE | 2019-04-03 04:16 | PC.NURSE ---
PATIENT HAS PULLED HER IV OUT THREE TIMES, ONCE IN THE ER AND THEN ON THE FLOOR, WHEN ASKING PATIENT WHY SHE PULLS OUT HER IV SHE STATES I DONT KNOW PATIENT EDUCATED EACH TIME ON WHY WE HAVE IV ACCESS, NOTIFIED DR BRIDGES OF IV REMOVAL AND DR. BRIDGES IS OKAY WITH LEAVING IV OUT UNTIL PROCEDURE.
[2019-04-03 06:16] LABS: INR 1.27 (0.8-1.2)
[2019-04-03 06:17] LABS: Basophils % 0.5 %; Eosinophils # 0.2 10^3/uL (0.0-0.8); Eosinophils % 3.8 %; Hematocrit 24.3 % (37.0-47.0); Hemoglobin 7.5 g/dL (11.5-15.3); Lymphocytes # 0.9 10^3/uL (0.8-4.8); Lymphocytes % 22.5 %; Mean Corpuscular HGB Conc 30.9 g/dL (30.0-36.0); Mean Corpuscular Hemoglobin 25.5 pg (28.0-34.0); Mean Corpuscular Volume 82.7 fL (81-99); Mean Platelet Volume 11.6 fL (7.4-10.4); Monocytes # 0.3 10^3/uL (0.2-0.9); Monocytes % 8.6 %; Neutrophils # 2.6 10^3/uL (1.8-7.7); Neutrophils % 64.3 %; Nucleated Red Blood Cells % 0 %; Partial Thromboplastin Time 38.6 SECONDS (23.9-36.7); Platelet Count 115 10^3/cmm (130-400); Red Blood Count 2.94 10^6/uL (4.1-5.3); Red Cell Distribution Width 16.6 % (12.1-15.1)
[2019-04-03 06:25] LABS: Ammonia 124 umol/L (11-51)
[2019-04-03 06:28] LABS: Alanine Aminotransferase 22 U/L (0-33); Albumin Level 2.6 g/dL (3.5-5.2); Alkaline Phosphatase 311 IU/L (35-105); Anion Gap 16.3 (5-19); Aspartate Amino Transferase 45 U/L (0-32); Blood Urea Nitrogen 43 mg/dL (8-23); Carbon Dioxide 16 mmol/L (22-29); Chloride 111 mmol/L (98-107); Glucose 148 mg/dL (74-106); Lactate Dehydrogenase 207 U/L (135-214); Potassium 5.3 mmol/L (3.5-5.1); Sodium 138 mmol/L (136-145); Thyroid Stimulating Hormone 2.33 uIU/mL (0.27-4.20); Total Bilirubin 0.4 mg/dL (0.15-1.2); Total Protein 6.6 g/dL (6.6-8.7)
[2019-04-03 06:42] LABS: Glucose Point of Care 133 mg/dL (70-110)
[2019-04-03 06:59] LABS: Folate Level 5.5 ng/mL (4.8-37.3)
[2019-04-03 07:03] LABS: Amylase 44 U/L (28-100); Chol HDL Ratio 5.96 mg/dL (0.0-4.40); Cholesterol 149 mg/dL (0-200); Gamma Glutamyl Transferase 153 U/L (36-); HDL Cholesterol 25 mg/dL (60-100); Iron 21 ug/dL (37-145); LDL Cholesterol Calculated 90 mg/dL (50-129); Lipase 61 U/L (13-60); Magnesium 1.9 mg/dL (1.7-2.3); NT Pro B Type Natriuretic Pept 350 pg/mL (0-125); Percent Saturation 10.1 % (20-50); Total Iron Binding Capacity 206 mg/dL; Triglycerides 168 mg/dL (0-150); Unsaturated Iron Binding 185 ug/dL (112-347); Vitamin B12 712 pg/mL (232-1245)
[2019-04-03] MEDS: pantoprazole DR 40 mg Tablet PO (09:39)
[2019-04-03] MEDS: docusate sodium 100 mg Capsule PO (09:39)
[2019-04-03] MEDS: levothyroxine 25 mcg Tablet PO (09:39)
[2019-04-03 11:19] LABS: Estmated Average Glucose 140; Hemoglobin A1C 6.5 % (4.0-6.0)
[2019-04-03 12:05] LABS: Glucose Point of Care 128 mg/dL (70-110)
--- NOTE | 2019-04-03 12:32 | P.DS_ITS ---
Discharge Providers Date of Admission: 04/02/19 21:54 Date of Discharge: 04/03/19 Attending Provider at Admission: Shoshana Ferguson MD Attending Provider at Discharge: Peewee Kim MD Primary Care Provider: Jesus Sullivan Diagnoses at Discharge Discharge Diagnosis (1) Liver cirrhosis: Status: Acute Qualifiers: Ascites presence: with ascites Hepatic cirrhosis type: unspecified hepatic cirrhosis Qualified Code(s): K74.60 - Unspecified cirrhosis of liver; R18.8 - Other ascites (2) Chronic kidney disease, stage III (moderate): Status: Acute (3) Normocytic anemia: Status: Acute (4) Type 2 diabetes mellitus without complication, without long-term current use of insulin: Status: Chronic (5) Acquired hypothyroidism: Status: Chronic (6) Essential hypertension: Status: Chronic (7) Mixed hyperlipidemia: Status: Chronic Reason for Visit Reason for Visit: Reason For Visit: upper abd pain Hospital Course Discharge Summary: This is a 71-year-old female with past medical history of type 2 diabetes mellitus, CKD stage III, hypertension, hyperlipidemia, hypothyroidism who presented to the ER complaining of increasing abdominal girth for last 1 month and abdominal pain and was found to have new onset diabetes and liver cirrhosis along with splenomegaly was admitted for further work-up with paracentesis. For liver cirrhosis patient denied of having any alcohol intake in the past or abuse, denies of having any family history of jaundice, history of blood transfusion, use of new type of diet or herbal products, any change in medications other than use of [id number] potassium supplements calcium supplements and vinegar tablets, recent travels, recreational drugs, hematemesis, melena in fact patient is constipated, history personally or family history of any autoimmune disorders. Blood work for cirrhosis was sent including hepatitis panel, HIV serology, aut oimmune panel,tumor marker alpha-fetoprotein, HbA1c, lipid panel, TSH. Unfortunately paracentesis could not be done over the weekend due to unavailability of the radiologist or the erp manager and this was discussed with the patient. Patient stated she would rather go home and come as an outpatient for diagnostic paracentesis. Patient was found to have mildly worsening renal functions which had improved by morning which is most likely because of hepatorenal syndrome along with being on an JNAAY inhibitor with worsening liver functions right now. Patient was asked to stop her lisinopril, simvastatin and metformin because of worsening liver function and was started on low-dose diuretic, propranolol and asked to stop any qxrp-[id number]-[id number] products, along with lifestyle notification such as fluid restriction up to 2 L and oral salt restriction up to 2 g/day. Patient was set up an appointment for ultrasound-guided paracentesis. Fluid study orders were put in as a hold q. orders. Patient was asked to follow-up with her primary care physician within 1 week to 10 days for a referral for a marketing consultant and wafer polishing lead worker in view of high meld score for further treatment. Physical Exam Narrative: EXAM NARRATIVE: General: No acute distress, AO x3 HEENT: PERRLA, pupils bilaterally equal and reactive, pallor, no icterus Chest: Normal vesicular breath sounds, no added sounds, equal good air entry bilaterally CVS: S1-S2 regular, no murmurs, no tachycardia, no gallops, no rubs Abdomen: Soft, nontender, distended, fluid thrill present, bowel sounds present, nodular liver palpable, splenomegaly palpable up to 2 finger breaths below the rib cage. Neuro: No focal deficits, no facial deformity, AO x3, power 5/5 in all limbs Discharge Data Data Completed and Pending: Completed Studies During Hospitalization Category Date Time Status CT abdomen pelvis wo con [id number] Urge nt Cat Scan 04/02/19 16:58 Completed XR chest 1V gumaro ble [id number] Stat Exams 04/02/19 16:28 Completed Pending at discharge Category Date Time Status Arterial Blood Ga s W/O Coox Routine Lab 04/02/19 17:34 Results HIV 1&2 Antigen & Antibody Routine Lab 04/03/19 05:51 Received Hepatitis Acute P cameron AM LABS Lab 04/03/19 05:51 Received Tumor Marker Alph a Fetoprotein Rout ine Lab 04/03/19 05:51 Re[address] US peritoneal fl dr reyes [id number] Marcy ine Ultrasound 04/03/19 01:55 Ordered Labs from last 24 hours 04/03/19 04/03/19 04/03/19 11:38 06:21 05:51 WBC RBC Hgb Hct MCV MCH MCHC RDW Plt Count MPV Neut % (Auto) Lymph % (Auto) [place] % (Auto) Eos % (Auto) Baso % (Auto) Neut # (Auto) Lymph # (Auto) [place] # (Auto) Eos # (Auto) Baso # (Auto) Nucleated RBC % (a uto) Nucleated RBCs # PT INR APTT Specimen Type Sample Site ABG pH ABG pCO2 ABG pO2 ABG HCO3 ABG Base Excess Ronald Test Hematocrit Civil Preparedness Training Officer ID Sodium Potassium Chloride Carbon Dioxide Anion Gap BUN Creatinine Glucose POC Glucose 128 133 Estimat Average Gl ucose Hemoglobin A1c Calcium Magnesium Iron TIBC % Saturation Unsat Iron Binding Total Bilirubin GGT AST ALT Alkaline Phosphata se Ammonia Lactate Dehydrogen ase Troponin I 6 Hour Troponin I Hi Sens Del Troponin T Baselin e Troponin T 120 Min [place] Troponin T NT-Pro-B Natriuret Pep Total Protein Albumin Globulin Triglycerides Cholesterol LDL Cholesterol, C alc HDL Cholesterol LDL/HDL Ratio Cholesterol/HDL Ra marcia Amylase Lipase Vitamin B12 Folate 5.5 TSH Urine Color Urine Appearance Urine pH Ur Specific Gravit y Urine Protein Urine Glucose (UA) Urine Ketones Urine Occult Blood Urine Nitrate Urine Bilirubin Urine Urobilinogen Ur Leukocyte Nelda ase Urine RBC Urine WBC Ur Squamous Epith Cells Urine Bacteria Hyaline Casts 04/03/19 04/03/19 04/03/19 05:51 05:51 05:51 WBC RBC Hgb Hct MCV MCH MCHC RDW Plt Count MPV Neut % (Auto) Lymph % (Auto) [place] % (Auto) Eos % (Auto) Baso % (Auto) Neut # (Auto) Lymph # (Auto) [place] # (Auto) Eos # (Auto) Baso # (Auto) Nucleated RBC % (a uto) Nucleated RBCs # PT INR APTT Specimen Type Sample Site ABG pH ABG pCO2 ABG pO2 ABG HCO3 ABG Base Excess Ronald Test Hematocrit Civil Preparedness Training Officer ID Sodium Potassium Chloride Carbon Dioxide Anion Gap BUN Creatinine Glucose POC Glucose Estimat Average Gl ucose 140 Hemoglobin A1c 6.5 H Calcium Magnesium 1.9 Iron 21 L TIBC 206 % Saturation 10.1 L Unsat Iron Binding 185 Total Bilirubin GGT 153 AST ALT Alkaline Phosphata se Ammonia 124 H Lactate Dehydrogen ase Troponin I 6 Hour Troponin I Hi Sens Del Troponin T Baselin e Troponin T 120 Min [place] Troponin T NT-Pro-B Natriuret Pep 350 H Total Protein Albumin Globulin Triglycerides 168 H Cholesterol 149 LDL Cholesterol, C alc 90 HDL Cholesterol 25 L LDL/HDL Ratio 3.60 H Cholesterol/HDL Ra marcia 5.96 H Amylase 44 Lipase 61 H Vitamin B12 712 Folate TSH Urine Color Urine Appearance Urine pH Ur Specific Gravit y Urine Protein Urine Glucose (UA) Urine Ketones Urine Occult Blood Urine Nitrate Urine Bilirubin Urine Urobilinogen Ur Leukocyte Nelda ase Urine RBC Urine WBC Ur Squamous Epith Cells Urine Bacteria Hyaline Casts 04/03/19 04/03/19 04/03/19 05:51 05:51 05:51 WBC 4.0 RBC 2.94 L Hgb 7.5 L Hct 24.3 L MCV 82.7 MCH 25.5 L MCHC 30.9 D RDW 16.6 H Plt Count 115 L MPV 11.6 H Neut % (Auto) 64.3 Lymph % (Auto) 22.5 [place] % (Auto) 8.6 Eos % (Auto) 3.8 Baso % (Auto) 0.5 Neut # (Auto) 2.6 Lymph # (Auto) 0.9 [place] # (Auto) 0.3 Eos # (Auto) 0.2 Baso # (Auto) 0.0 Nucleated RBC % (a uto) 0 Nucleated RBCs # 0.0 PT 16.40 H INR 1.27 H APTT 38.6 H Specimen Type Sample Site ABG pH ABG pCO2 ABG pO2 ABG HCO3 ABG Base Excess Ronald Test Hematocrit Civil Preparedness Training Officer ID Sodium 138 Potassium 5.3 H Chloride 111 H Carbon Dioxide 16 L Anion Gap 16.3 BUN 43 H Creatinine 1.9 H Glucose 148 H POC Glucose Estimat Average Gl ucose Hemoglobin A1c Calcium 9.0 Magnesium Iron TIBC % Saturation Unsat Iron Binding Total Bilirubin 0.4 GGT AST 45 H ALT 22 Alkaline Phosphata se 311 H Ammonia Lactate Dehydrogen ase 207 Troponin I 6 Hour Troponin I Hi Sens Del Troponin T Baselin e Troponin T 120 Min [place] Troponin T NT-Pro-B Natriuret Pep Total Protein 6.6 Albumin 2.6 L Globulin 4.0 Triglycerides Cholesterol LDL Cholesterol, C alc HDL Cholesterol LDL/HDL Ratio Cholesterol/HDL Ra marcia Amylase Lipase Vitamin B12 Folate TSH 2.33 Urine Color Urine Appearance Urine pH Ur Specific Gravit y Urine Protein Urine Glucose (UA) Urine Ketones Urine Occult Blood Urine Nitrate Urine Bilirubin Urine Urobilinogen Ur Leukocyte Nelda ase Urine RBC Urine WBC Ur Squamous Epith Cells Urine Bacteria Hyaline Casts 04/02/19 04/02/19 04/02/19 23:08 20:20 19:19 WBC RBC Hgb Hct MCV MCH MCHC RDW Plt Count MPV Neut % (Auto) Lymph % (Auto) [place] % (Auto) Eos % (Auto) Baso % (Auto) Neut # (Auto) Lymph # (Auto) [place] # (Auto) Eos # (Auto) Baso # (Auto) Nucleated RBC % (a uto) Nucleated RBCs # PT INR APTT Specimen Type Sample Site ABG pH ABG pCO2 ABG pO2 ABG HCO3 ABG Base Excess Ronald Test Hematocrit Civil Preparedness Training Officer ID Sodium Potassium Chloride Carbon Dioxide Anion Gap BUN Creatinine Glucose POC Glucose Estimat Average Gl ucose Hemoglobin A1c Calcium Magnesium Iron TIBC % Saturation Unsat Iron Binding Total Bilirubin GGT AST ALT Alkaline Phosphata se Ammonia Lactate Dehydrogen ase Troponin I 6 Hour 36.70 H Troponin I Hi Sens Del -0.30 L Troponin T Baselin e Troponin T 120 Min [place] 37.65 H Delta Troponin T 0.65 NT-Pro-B Natriuret Pep Total Protein Albumin Globulin Triglycerides Cholesterol LDL Cholesterol, C alc HDL Cholesterol LDL/HDL Ratio Cholesterol/HDL Ra marcia Amylase Lipase Vitamin B12 Folate TSH Urine Color Yellow Urine Appearance Cloudy Urine pH 5 Ur Specific Gravit y 1.015 Urine Protein 1+ H Urine Glucose (UA) Norm Urine Ketones 1+ H Urine Occult Blood Neg Urine Nitrate Negative Urine Bilirubin 1+ H Urine Urobilinogen 1 H Ur Leukocyte Nelda ase Trace H Urine RBC 0-4 H Urine WBC 15-25 H Ur Squamous Epith Cells 25-40 H Urine Bacteria 2+ H Hyaline Casts 0-4 H 04/02/19 04/02/19 04/02/19 17:34 17:01 17:00 WBC RBC Hgb Hct MCV MCH MCHC RDW Plt Count MPV Neut % (Auto) Lymph % (Auto) [place] % (Auto) Eos % (Auto) Baso % (Auto) Neut # (Auto) Lymph # (Auto) [place] # (Auto) Eos # (Auto) Baso # (Auto) Nucleated RBC % (a uto) Nucleated RBCs # PT INR APTT Specimen Type Arterial Sample Site Radial, right ABG pH 7.40 ABG pCO2 23.2 L ABG pO2 82.9 ABG HCO3 14.5 L ABG Base Excess -9.0 L Ronald Test Pos Hematocrit 25.3 L Civil Preparedness Training Officer ID jmn Sodium 135 L Potassium 5.3 H Chloride 106 Carbon Dioxide 16 L Anion Gap 18.3 BUN 44 H Creatinine 2.1 H Glucose 279 H POC Glucose Estimat Average Gl ucose Hemoglobin A1c Calcium 9.2 Magnesium Iron TIBC % Saturation Unsat Iron Binding Total Bilirubin 0.4 GGT AST 47 H ALT 28 Alkaline Phosphata se 369 H Ammonia Lactate Dehydrogen ase Troponin I 6 Hour Troponin I Hi Sens Del Troponin T Baselin e 37 H Troponin T 120 Min [place] Troponin T NT-Pro-B Natriuret Pep Total Protein 7.0 Albumin 3.2 L Globulin 3.8 Triglycerides Cholesterol LDL Cholesterol, C alc HDL Cholesterol LDL/HDL Ratio Cholesterol/HDL Ra marcia Amylase Lipase 77 H Vitamin B12 Folate TSH Urine Color Urine Appearance Urine pH Ur Specific Gravit y Urine Protein Urine Glucose (UA) Urine Ketones Urine Occult Blood Urine Nitrate Urine Bilirubin Urine Urobilinogen Ur Leukocyte Nelda ase Urine RBC Urine WBC Ur Squamous Epith Cells Urine Bacteria Hyaline Casts 04/02/19 17:00 WBC 6.7 RBC 3.25 L Hgb 8.2 L Hct 28.1 L MCV 86.5 MCH 25.2 L MCHC 29.2 L RDW 16.8 H Plt Count 151 MPV 11.7 H Neut % (Auto) 73.1 Lymph % (Auto) 15.7 [place] % (Auto) 7.7 Eos % (Auto) 2.5 Baso % (Auto) 0.7 Neut # (Auto) 4.9 Lymph # (Auto) 1.1 [place] # (Auto) 0.5 Eos # (Auto) 0.2 Baso # (Auto) 0.1 Nucleated RBC % (a uto) 0 Nucleated RBCs # 0.0 PT INR APTT Specimen Type Sample Site ABG pH ABG pCO2 ABG pO2 ABG HCO3 ABG Base Excess Ronald Test Hematocrit Civil Preparedness Training Officer ID Sodium Potassium Chloride Carbon Dioxide Anion Gap BUN Creatinine Glucose POC Glucose Estimat Average Gl ucose Hemoglobin A1c Calcium Magnesium Iron TIBC % Saturation Unsat Iron Binding Total Bilirubin GGT AST ALT Alkaline Phosphata se Ammonia Lactate Dehydrogen ase Troponin I 6 Hour Troponin I Hi Sens Del Troponin T Baselin e Troponin T 120 Min [place] Troponin T NT-Pro-B Natriuret Pep Total Protein Albumin Globulin Triglycerides Cholesterol LDL Cholesterol, C alc HDL Cholesterol LDL/HDL Ratio Cholesterol/HDL Ra marcia Amylase Lipase Vitamin B12 Folate TSH Urine Color Urine Appearance Urine pH Ur Specific Gravit y Urine Protein Urine Glucose (UA) Urine Ketones Urine Occult Blood Urine Nitrate Urine Bilirubin Urine Urobilinogen Ur Leukocyte Nelda ase Urine RBC Urine WBC Ur Squamous Epith Cells Urine Bacteria Hyaline Casts Vitals: Last Vital Signs Temp 97.9 F 04/03/19 11:39 Pulse 88 01/11/20 11:39 Resp 18 04/03/19 11:39 BP 157/77 04/03/19 11:39 Pulse Ox 98 04/03/19 11:39 Discharge Plan Discharge Patient Disposition: Home, Self-Care Condition: Stable Prescriptions: New pantoprazole 40 mg Tablet,Delayed Release (Dr/Ec) 40 mg PO BID 30 Days Qty: 60 RF: 0 Lasix 20 mg tablet 10 mg PO DAILY Qty: 14 RF: 0 ferrous sulfate 325 mg (65 mg iron) tablet,delayed release (DR/EC) 325 mg PO BID Qty: 30 RF: 0 Continued glipizide 10 mg Tablet Extended Release 24hr 10 mg PO DAILY RF: 0 levothyroxine 25 mcg tablet 25 mcg PO DAILY RF: 0 Discontinued metformin 1,000 mg tablet extended release 24hr 1,000 mg PO BID RF: 0 simvastatin 10 mg tablet 10 mg PO DAILY RF: 0 lisinopril 10 mg tablet 10 mg PO DAILY RF: 0 Discharge Orders: Discharge Order (Routine); Ordered 04/03/19 Ordered By: Peewee Kim Other Ambulatory Orders: US paracentesis abd w [id number] (Routine) Timeframe: 1 Week Facility: [facility] - Location: Radiology Ordered By: Peewee Kim Referrals: Aleshia Botello FNP [Family Provider] - 7-10 days (PLEASE CALL FRIDAY TO SET UP A FOLLOW UP APPOINTMENT) Jesus Sullivan FNP [Primary Care Provider] - 7-10 days (PLEASE CALL FRIDAY TO SET UP A FOLLOW UP APPOINTMENT) Discharge Diet: Low Salt Discharge Activity: Resume usual activity Patient Instructions: Furosemide (By mouth), Pantoprazole (By mouth), Cirrhosis (DC), Ascites (DC) Activity Restrictions/Additional Instructions: Low salt diet. Less than 2 gm Fluid restriction 2000 cc/day Stop statin, lisinopril, metformin Start low dose diuretic. Will need to uptitrate propranolol and start spirinilactone once BP and potassium stabalizes. Discharge Date/Time: 04/03/19 13:45 Discharge Attestations Time Spent in Discharge Care*: greater than 30 min Specific Discharge Activities: Specific discharge activities: educating patient and educating and/or supporting family/caregiver Status at Discharge: Cognitive status at discharge: cognitively intact , Behavioral status at discharge: cooperative , Functional status at discharge: independent ambulation Quality Metrics Clinical Quality Measures During this hospital stay, did patient experience: None Coding Level of Care Code Acute Pyrometer Temperature Regulator for Chg Fwd Diagnoses Liver cirrhosis K74.60; R18.8 Ascites presence: with ascites Hepatic cirrhosis type: unspecified hepatic cirrhosis Chronic kidney disease, stage III (moderate) N18.3 Normocytic anemia D64.9 Type 2 diabetes mellitus without complication, without long-term current use of insulin E11.9 Acquired hypothyroidism E03.9 Essential hypertension I10 Mixed hyperlipidemia E78.2
[2019-04-03 13:08] LABS: Tumor Marker Alpha Fetoprotein 46.6 ng/mL (0-8.3)
[2019-04-03 13:12] LABS: HIV 1 & 2 Antibody Non-Reactive (Non-Reactiv); HIV 1 & 2 Antigen Non-Reactive (Non-Reactiv)
[2019-04-03 14:02] LABS: Hepatitis A Antibody IgM. Non-Reactive (Nonreactive); Hepatitis B Core IgM Non-Reactive (Nonreactive); Hepatitis B Surface Antigen. Non-Reactive (Nonreactive); Hepatitis C Virus Antibody Non-Reactive (Nonreactive)
== END 2019-04-03 13:45 | disposition home or self-care (01) | DRG 433 ==
LOC: ER 16:15 → MEDSURG 21:56
PROVIDERS: Nurse Practitioner Family; Admitting Provider Hospitalist; Emergency Provider Emergency Medicine; Family Provider Nurse Practitioner Family; PCP Nurse Practitioner Family; Visit Provider Student in an Organized Health Care Education/Training Program
DX: K74.60 Unspecified cirrhosis of liver (principal); R18.8 Other ascites; I12.9 Hypertensive chronic kidney disease with stage 1 through stage 4 chronic kidney disease, or unspecified chronic kidney disease; D64.9 Anemia, unspecified; E03.4 Atrophy of thyroid (acquired); E78.2 Mixed hyperlipidemia; E11.22 Type 2 diabetes mellitus with diabetic chronic kidney disease; Z79.84 Long term (current) use of oral hypoglycemic drugs; Z85.3 Personal history of malignant neoplasm of breast; M19.90 Unspecified osteoarthritis, unspecified site; Z90.11 Acquired absence of right breast and nipple; E55.9 Vitamin D deficiency, unspecified; E87.5 Hyperkalemia
CPT/HCPCS: 36415; 36416; 36600; 71045; 74176; 80053; 80061; 80074; 81001; 82105; 82140; 82150; 82607; 82746; 82803; 82962; 82977; 83036; 83540; 83550; 83615; 83690; 83735; 83880; 84443; 84484; 85025; 85610; 85730; 86225; 86235; 93005; 96374; 96375; 99282; J2270; J2405

== ENCOUNTER 2019-04-05 13:02 | Emergency (ER) | payer MEDICARE, SELFPAY ==
[2019-04-05] VITALS (8 sets, daily range): BP systolic 51–154; BP diastolic 29–64; PULSE 83–115; RESP 12–26; TEMP 36.3; O2SAT 96–100; BMI 27.4
--- NOTE | 2019-04-05 13:02 | ED_ITS ---
Entered by Margie Hassan, acting as scribe for Jillian Yusuf MD, [facility] HPI - GI Bleed General: Chief complaint: GI Bleed Stated complaint: GI Bleed, AMS, Cirrhosis Time Seen by Provider: 04/05/19 13:04 Source: EMS Mode of arrival: EMS Limitations: altered mental status History of Present Illness: HPI Narrative: 74 yo f came to the er by ems unresponsive with a gi bleed . Onset was last night. Ems states that pt was having altered mental status last night and this morning she was vomiting up large blood clots all over the house. Pt is unresponsive to verbal. MD complaint: gross hematemesis Review of Systems General: Reports: ROS unobtainable due to mental status PFSH ED PFSH: Statuses (acute, chronic, etc) shown below reflect problem list status as previously entered and may not be historically accurate Medical History Acquired hypothyroidism (Chronic) Arthritis (Chronic) Chronic kidney disease, stage III (moderate) (Acute) DDD (degenerative disc disease), lumbosacral (Chronic) Essential hypertension (Chronic) Herpes genitalia (Acute) History of breast cancer (Acute) 1997, treated with right mastectomy, never had chemotherapy nor hormonal therapy Mixed hyperlipidemia (Chronic) Type 2 diabetes mellitus without complication, without long-term current use of insulin (Chronic) Vitamin D deficiency (Chronic) Surgical History History of right mastectomy (Acute) 1997 Family History Sister Cancer of breast cancer, several cousins also have breast cancer Father CAD (coronary artery disease) Brother CAD (coronary artery disease) Other Arthritis Social History Smoking and tobacco status: never smoked Alcohol intake: never Number of children: 0 Female Reproductive History: Para: 0 Spontaneous abortions: Yes Physical Exam Narrative: EXAM NARRATIVE: Patient with dried blood on her face and her chest. Also has dark tarry stools present. The patient is unresponsive. Const: COMMON NORMALS: no limitations EXAM LIMITATIONS: altered mental status and other limitations ORIENTATION/CONSCIOUSNESS: Yes confused; not awake, not oriented to person, not oriented to place and not oriented to time Resp: EFFORT & INSPECTION: Yes symmetric chest movement and Yes decreased respiratory effort Neuro: KAYLIE COMA SCALE: document GCS findings Kaylie coma scale eye opening: To pressure [place] coma scale verbal response: None [place] coma scale motor response: Localising Kaylie coma scale total score: 8 SENSORIUM/ORIENTATION: No oriented to person, No oriented to place and No oriented to time Skin: RASHES: rashes noted (around navel and buttocks) Procedures Intubation Time out performed: Yes (1316) sedative: Etomidate Mg Given: 20 paralytic: Succinylcholine Mg Given: 140 Laryngoscope: Rob (Size 4) ET Tube Size: 8 ET Tube Uncuffed: No Tube Secured Depth (cm): 20 Tube Secured Location: lips Tube Placement Confirmation: visualized tube passing through cords, no breath sounds over epigastrium and confirmation by capnometry Patient Tolerated Procedure: well Intubation Complications: none Course Vital Signs: Vital signs: Vital Signs Temperature 97.3 F L 04/05/19 13:14 Pulse Rate 92 04/05/19 14:37 Respiratory Rate 19 H 04/05/19 14:37 Blood Pressure 110/55 04/05/19 14:37 Pulse Oximetry 100 04/05/19 14:37 MDM - GI Bleed MDM Narrative: Medical decision making narrative: 74-year-old female patient was recently diagnosed with liver cirrhosis and ascites. She apparently had been in her usual state of health until yesterday which was the last time she was seen by her family. Today when they called her on the phone she did not respond and so they went to her house to take a look at her and they found her unresponsive with blood which they assumed was vomited up spread around the house. EMS was therefore called and she was brought here to be evaluated. In the emergency room the patient was unresponsive as well, normotensive and anemic with hemoglobin of 6.2. She had obvious upper and lower GI bleed. Aspirates from her OG tube yielded dark blood. She also had melena stools. Because of her GCS, shallow respirations and vomiting blood with risk of aspiration a decision was made to emergently intubate the patient and placed on mechanical ventilation. She was intubated successfully at the first attempt. She was also given intravenous Protonix and octreotide. She was transfused with 2 units of O- blood. She was then transferred emergently to [facility] in [place] for further evaluation and gastroenterology evaluation. Her family was updated throughout this process. Medical Records: Attestation: I reviewed the patient's medical records. Lab Data: Attestation: I reviewed the patient's lab results. Labs: Lab Results 04/05/19 04/05/19 04/05/19 Range/Units 13:10 13:10 13:10 WBC 15.3 H (4.0-10.0) 10^3/ uL RBC 2.37 L (4.1-5.3) 10^6/u L Hgb 6.2 L* (11.5-15.3) g/dL Hct 20.3 L* (37.0-47.0) % MCV 85.7 (81-99) fL MCH 26.2 L (28.0-34.0) pg MCHC 30.5 (30.0-36.0) g/dL RDW 16.8 H (12.1-15.1) % Plt Count 270 (130-400) 10^3/c mm MPV 11.2 H (7.4-10.4) fL Neut % (Auto) 79.7 % Lymph % (Auto) 12.9 % [place] % (Auto) 6.4 % Eos % (Auto) 0.3 % Baso % (Auto) 0.2 % Neut # (Auto) 12.2 H (1.8-7.7) 10^3/u L Lymph # (Auto) 2.0 (0.8-4.8) 10^3/u L [place] # (Auto) 1.0 H (0.2-0.9) 10^3/u L Eos # (Auto) 0.0 (0.0-0.8) 10^3/u L Baso # (Auto) 0.0 (0.0-0.1) 10^3/u L Nucleated RBC % (a uto) 0 % Nucleated RBCs # 0.0 /100WBC PT 18.90 H (10.5-13.3) SECO NDS INR 1.52 H (0.8-1.2) Specimen Type Sample Site ABG pH (7.35-7.45) ABG pCO2 (35-45) mmHg ABG pO2 (80.0-100.0) mmH g ABG HCO3 (22-26) mmol/L ABG Base Excess (-2.0-2.0) mmol/ L Ronald Test Hematocrit (37-47) % O2 Delivery Device O2 Liters/Min % FiO2 % Specimen Drawn By Miner ID Sodium (136-145) mmol/L Potassium (3.5-5.1) mmol/L Chloride (98-107) mmol/L Carbon Dioxide (22-29) mmol/L Anion Gap (5-19) BUN (8-23) mg/dL Creatinine (0.5-0.9) mg/dL Glucose (74-106) mg/dL Lactic Acid (Sepsi s) (0.5-2.2) mmol/L Calcium (8.8-10.2) mg/Dl Total Bilirubin (0.15-1.2) mg/dL AST (0-32) U/L ALT (0-33) U/L Alkaline Phosphata se (35-105) IU/L Ammonia (11-51) umol/L Total Protein (6.6-8.7) g/dL Albumin (3.5-5.2) g/dL Globulin (1.3-4.6) g/dL Lipase (13-60) U/L Blood Type AB Positive Antibody Screen Negative Crossmatch See Detail 04/05/19 04/05/19 04/05/19 Range/Units 13:10 13:10 13:10 WBC (4.0-10.0) 10^3/ uL RBC (4.1-5.3) 10^6/u L Hgb (11.5-15.3) g/dL Hct (37.0-47.0) % MCV (81-99) fL MCH (28.0-34.0) pg MCHC (30.0-36.0) g/dL RDW (12.1-15.1) % Plt Count (130-400) 10^3/c mm MPV (7.4-10.4) fL Neut % (Auto) % Lymph % (Auto) % [place] % (Auto) % Eos % (Auto) % Baso % (Auto) % Neut # (Auto) (1.8-7.7) 10^3/u L Lymph # (Auto) (0.8-4.8) 10^3/u L [place] # (Auto) (0.2-0.9) 10^3/u L Eos # (Auto) (0.0-0.8) 10^3/u L Baso # (Auto) (0.0-0.1) 10^3/u L Nucleated RBC % (a uto) % Nucleated RBCs # /100WBC PT (10.5-13.3) SECO NDS INR (0.8-1.2) Specimen Type Sample Site ABG pH (7.35-7.45) ABG pCO2 (35-45) mmHg ABG pO2 (80.0-100.0) mmH g ABG HCO3 (22-26) mmol/L ABG Base Excess (-2.0-2.0) mmol/ L Ronald Test Hematocrit (37-47) % O2 Delivery Device O2 Liters/Min % FiO2 % Specimen Drawn By Miner ID Sodium 139 (136-145) mmol/L Potassium 5.6 H (3.5-5.1) mmol/L Chloride 112 H (98-107) mmol/L Carbon Dioxide 14 L (22-29) mmol/L Anion Gap 18.6 (5-19) BUN 57 H (8-23) mg/dL Creatinine 2.2 H (0.5-0.9) mg/dL Glucose 345 H (74-106) mg/dL Lactic Acid (Sepsi s) 2.7 H (0.5-2.2) mmol/L Calcium 8.4 L (8.8-10.2) mg/Dl Total Bilirubin 0.5 (0.15-1.2) mg/dL AST 25 (0-32) U/L ALT 18 (0-33) U/L Alkaline Phosphata se 239 H (35-105) IU/L Ammonia 111 H (11-51) umol/L Total Protein 5.6 L (6.6-8.7) g/dL Albumin 2.6 L (3.5-5.2) g/dL Globulin 3.0 (1.3-4.6) g/dL Lipase 62 H (13-60) U/L Blood Type Antibody Screen Crossmatch 04/05/19 Range/Units 13:20 WBC (4.0-10.0) 10^3/ uL RBC (4.1-5.3) 10^6/u L Hgb (11.5-15.3) g/dL Hct (37.0-47.0) % MCV (81-99) fL MCH (28.0-34.0) pg MCHC (30.0-36.0) g/dL RDW (12.1-15.1) % Plt Count (130-400) 10^3/c mm MPV (7.4-10.4) fL Neut % (Auto) % Lymph % (Auto) % [place] % (Auto) % Eos % (Auto) % Baso % (Auto) % Neut # (Auto) (1.8-7.7) 10^3/u L Lymph # (Auto) (0.8-4.8) 10^3/u L [place] # (Auto) (0.2-0.9) 10^3/u L Eos # (Auto) (0.0-0.8) 10^3/u L Baso # (Auto) (0.0-0.1) 10^3/u L Nucleated RBC % (a uto) % Nucleated RBCs # /100WBC PT (10.5-13.3) SECO NDS INR (0.8-1.2) Specimen Type Arterial Sample Site Radial, left ABG pH 7.36 (7.35-7.45) ABG pCO2 24.9 L (35-45) mmHg ABG pO2 497.0 H* (80.0-100.0) mmH g ABG HCO3 14.0 L (22-26) mmol/L ABG Base Excess -10.5 L (-2.0-2.0) mmol/ L Ronald Test Pos Hematocrit 18.6 L (37-47) % O2 Delivery Device Ambu O2 Liters/Min 15.0 % FiO2 100.0 % Specimen Drawn By Gd Miner ID [email or web address] Sodium (136-145) mmol/L Potassium (3.5-5.1) mmol/L Chloride (98-107) mmol/L Carbon Dioxide (22-29) mmol/L Anion Gap (5-19) BUN (8-23) mg/dL Creatinine (0.5-0.9) mg/dL Glucose (74-106) mg/dL Lactic Acid (Sepsi s) (0.5-2.2) mmol/L Calcium (8.8-10.2) mg/Dl Total Bilirubin (0.15-1.2) mg/dL AST (0-32) U/L ALT (0-33) U/L Alkaline Phosphata se (35-105) IU/L Ammonia (11-51) umol/L Total Protein (6.6-8.7) g/dL Albumin (3.5-5.2) g/dL Globulin (1.3-4.6) g/dL Lipase (13-60) U/L Blood Type Antibody Screen Crossmatch Imaging Data^: CXR: Radiologist's impression: [address] [address] XRay Report Signed Patient: Frnaci Sy #: [id number] : 1945Acct#:[id number] Age/Sex: 74 / FADM Date: 04/05/19 [facility] Dr: Ordering Provider/Ordering MD: Jillian Yusuf MD, [facility] Date of Service: 04/05/19 Procedure(s): XR chest 1V portable 29830 Accession Number(s): [id number] Report Number: [id number] WS: [id number] Portable AP upright chest, 04/05/2019 Clinical Data: post intubation Comparison: Portable chest, 04/02/2019 Findings: The endotracheal tube is above the jax. The nasogastric tube appears to end in the stomach. There is minimal basilar atelectasis. No nodules, masses or effusions are seen. The heart is not enlarged. The pulmonary vascularity is not increased. No pneumonia or pneumothorax is seen. There is a monitor lead on the chest wall. There are clips in the right axilla from surgery. XR/XR chest 1V portable 21904 Impression: Satisfactory placement of endotracheal and nasogastric tubes. Critical Care Time Critical Care Time: Critical Care Time: Yes Total Critical Care Time: 90 Attestation: This case had a high probability of a clinically significant, sudden, or life threatening deterioration of this patient's condition which required my full and direct attention, intervention and personal management. Discharge Plan Discharge Patient Disposition: Transfer to ED Clinical Impression: Acute upper gastrointestinal bleeding, Acute alteration in mental status, Acute blood loss anemia Prescriptions: No Action glipizide 10 mg Tablet Extended Release 24hr 10 mg PO DAILY RF: 0 levothyroxine 25 mcg tablet 25 mcg PO DAILY RF: 0 pantoprazole 40 mg Tablet,Delayed Release (Dr/Ec) 40 mg PO BID 30 Days Qty: 60 RF: 0 furosemide [Lasix] 20 mg tablet 10 mg PO DAILY Qty: 14 RF: 0 ferrous sulfate 325 mg (65 mg iron) tablet,delayed release (DR/EC) 325 mg PO BID Qty: 30 RF: 0 Referrals: Aleshia Botello FNP [Family Provider] - Jesus Sullivan FNP [Primary Care Provider] - Interventions: ED Discharge Assessment Last Done: 04/05/19 14:37 Discharge Date/Time: 04/05/19 14:38 Coding Level of Care Code ED Final Tester for Fabiog Fwjesus The documentation recorded by the Mo arreola Stephanie Lyn, accurately reflects the service I personally performed and the decisions made by Madelin pierre Adegoke I, MD, [facility] Apr 05, 2019 13:02
[2019-04-05] MEDS: succinylcholine 20 mg/mL SDV 10mL 140 MG IVP (13:20)
[2019-04-05 13:31] LABS: Basophils % 0.2 %; Eosinophils % 0.3 %; Lymphocytes % 12.9 %; Mean Corpuscular HGB Conc 30.5 g/dL (30.0-36.0); Mean Corpuscular Hemoglobin 26.2 pg (28.0-34.0); Mean Corpuscular Volume 85.7 fL (81-99); Mean Platelet Volume 11.2 fL (7.4-10.4); Monocytes % 6.4 %; Neutrophils # 12.2 10^3/uL (1.8-7.7); Neutrophils % 79.7 %; Nucleated Red Blood Cells % 0 %; Platelet Count 270 10^3/cmm (130-400); Red Blood Count 2.37 10^6/uL (4.1-5.3); Red Cell Distribution Width 16.8 % (12.1-15.1); White Blood Count 15.3 10^3/uL (4.0-10.0)
[2019-04-05 13:33] LABS: Hematocrit 20.3 % (37.0-47.0); Hemoglobin 6.2 g/dL (11.5-15.3)
[2019-04-05 13:38] LABS: INR 1.52 (0.8-1.2)
[2019-04-05 13:45] LABS: Alanine Aminotransferase 18 U/L (0-33); Albumin Level 2.6 g/dL (3.5-5.2); Alkaline Phosphatase 239 IU/L (35-105); Anion Gap 18.6 (5-19); Aspartate Amino Transferase 25 U/L (0-32); Blood Urea Nitrogen 57 mg/dL (8-23); Calcium 8.4 mg/Dl (8.8-10.2); Carbon Dioxide 14 mmol/L (22-29); Chloride 112 mmol/L (98-107); Glucose 345 mg/dL (74-106); Lipase 62 U/L (13-60); Potassium 5.6 mmol/L (3.5-5.1); Sodium 139 mmol/L (136-145); Total Bilirubin 0.5 mg/dL (0.15-1.2); Total Protein 5.6 g/dL (6.6-8.7)
[2019-04-05 13:46] LABS: Lactic Acid level (Lactate) 2.7 mmol/L (0.5-2.2)
[2019-04-05 13:52] LABS: Ammonia 111 umol/L (11-51)
[2019-04-05] MEDS: octreotide 100 mcg/mL SDV 50 MCG IVP (13:57)
[2019-04-05 14:00] LABS: ABG PCO2 24.9 mmHg (35-45); ABG PH Result 7.36 (7.35-7.45); Arterial Blood Gas Hematocrit 18.6 % (37-47); Base Excess ABG -10.5 mmol/L (-2.0-2.0); Blood Gas Allen Test Pos; Blood Gas Operator Identificat drupa; Blood Gas Sample Site Radial, left; Blood Gas Sample Type Arterial
[2019-04-05 14:01] LABS: Blood Gas Drawn By GD; Oxygen Device AMBU
[2019-04-05] MEDS: pantoprazole 40 mg SDV 80 MG IVP (14:04)
--- NOTE | 2019-04-05 14:06 | XR_ITS ---
WS: [id number] Portable AP upright chest, 04/05/2019 Clinical Data: post intubation Comparison: Portable chest, 04/02/2019 Findings: The endotracheal tube is above the jax. The nasogastric tube appears to end in the stoma ch. There is minimal basilar atelectasis. No nodules, masses or effusions are seen. The heart is not enlarged. The pulmonary vascularity is not increased. No pneumonia or pneumothorax is seen. There is a monitor lead on the chest wall. There are clips in the right axilla from surgery. XR/XR chest 1V portable [id number] Impression: Satisfactory placement of endotracheal and nasogastric tubes.
[2019-04-05] MEDS: propofol 1,000 MG/100 ML INJ 2.2 MG IV (14:09)
[2019-04-05] MEDS: sodium chloride 0.9% 1,000 ML 999 ML (14:10)
--- NOTE | 2019-04-05 14:13 | PC.NURSE ---
O neg uncrossmatched blood started to right wrist 20g at 1345. Pt name, , and blood band [id number] double checked with Leuko reduced RBCs unit #[id number] with ANA Flores. Pt tolerated first 15 min transfusion at 80ml/hr with no reaction noted. Increased rate at 1400 to 120ml/hr. Dr Yusuf and this nurse at bedside for entire procedure.
--- NOTE | 2019-04-05 14:24 | PC.NURSE ---
Unit #2 blood Leuko reduced RBCs, uncrossmatched o neg. #[id number] started, double checked with Shannon Stoddard RN, double checked with VERONICA [id number]
[2019-04-05] MEDS: ketamine 100 mg/mL Inj 5 mL 50 MG IV (14:36)
== END 2019-04-05 14:38 ==
LOC: ER 13:22
PROVIDERS: Emergency Provider Family Medicine; Family Provider Nurse Practitioner Family; PCP Nurse Practitioner Family
DX: K92.2 Gastrointestinal hemorrhage, unspecified (principal); R41.82 Altered mental status, unspecified; D62 Acute posthemorrhagic anemia; Z79.84 Long term (current) use of oral hypoglycemic drugs; E11.22 Type 2 diabetes mellitus with diabetic chronic kidney disease; N18.3 Chronic kidney disease, stage 3 (moderate); I12.9 Hypertensive chronic kidney disease with stage 1 through stage 4 chronic kidney disease, or unspecified chronic kidney disease; Z85.3 Personal history of malignant neoplasm of breast; E78.5 Hyperlipidemia, unspecified; E03.9 Hypothyroidism, unspecified
CPT/HCPCS: 31500; 36415; 36430; 51702; 71045; 80053; 82140; 82803; 83605; 83690; 85025; 85610; 86850; 86900; 87040; 87070; 87077; 87186; 87205; 94002; 94799; 96360; 96365; 96374; 96375; 99283; C9113; J0330; J2354; J2704; J3490; J7030; P9016